=== PATIENT | male | born 2000 | race Caucasian/White ===

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

== ENCOUNTER 2022-07-15 13:44 | Emergency (ER) | payer SELFPAY ==
[2022-07-15] MEDS ORDERED: Ondansetron ODT 4 MG TAB ONE (14:03)
[2022-07-15] MEDS ORDERED: Dicyclomine 20 MG/2 ML VIAL ONE (14:04)
== END 2022-07-15 15:11 | disposition home or self-care (01) ==
LOC: ERS 13:44
DX: R11.2 Nausea with vomiting, unspecified (principal)
CPT/HCPCS: 96372; 99283; Q0162